=== PATIENT | male | born 1975 | race Caucasian/White ===

== ENCOUNTER 2018-04-08 14:20 | Emergency (ER) | payer OTHER ==
[~2018-04-08] VITALS: Ht 185.4 cm; Wt 107.5 kg
[2018-04-08 14:31] VITALS: BP 154/100
[2018-04-08 15:16] LABS: INFLUENZA A ANTIGEN None Detected (None Detect); INFLUENZA B ANTIGEN None Detected (None Detect)
[2018-04-08] MEDS ORDERED: CHERATUSSIN AC118 ML PO (15:42)
== END 2018-04-08 16:05 | disposition home or self-care (01) ==
LOC: M.ERS 14:20
PROVIDERS: Nurse Practitioner Family
DX: J06.9 Acute upper respiratory infection, unspecified (principal); Z88.0 Allergy status to penicillin

== ENCOUNTER 2018-09-26 04:21 | Emergency (ER) | payer OTHER ==
[~2018-09-26] VITALS: Ht 185.4 cm; Wt 116.6 kg
[~2018-09-26 04:21] MED LIST: CHERATUSSIN AC118 ML PO
[2018-09-26] MEDS ORDERED: VERAPAMIL E.R240 M1 PO (04:24)
[2018-09-26 04:50] LABS: ABSOLUTE BASOPHILS 0.1 thou/uL (0.0-0.2); ABSOLUTE EOSINOPHILS 0.4 thou/uL (0.0-0.7); ABSOLUTE LYMPHOCYTES 4.6 thou/uL (0.8-5.3); ABSOLUTE MONOCYTES 0.7 thou/uL (0.0-1.2); ABSOLUTE NEUTROPHILS 3.7 thou/uL (1.6-8.1); BASOPHILS 1.2 %; EOSINOPHILS 4.6 %; HEMATOCRIT 45.8 % (42.0-52.0); HEMOGLOBIN 16.2 gm/dL (14.0-18.0); LYMPHOCYTES 47.9 %; MCH 29.9 pg (26.0-34.0); MCHC 35.3 g/dL (28.0-37.0); MCV 84.6 fL (80.0-100.0); MONOCYTES 7.6 %; MPV 8.5 fl. (7.2-11.1); NUCLEATED RBCS 0 /100WBC; PLATELET COUNT* 315 thou/uL (150-400); POLYS 38.7 %; RBC 5.42 mil/uL (4.50-6.00); RDW-CV 13.3 % (10.5-14.5); WBC 9.6 thou/uL (4.0-11.0)
[2018-09-26 06:12] LABS: PROTIME 10.7 Seconds (9.20-11.50)
[2018-09-26 06:25] LABS: ANION GAP 14 mmol/L (7-16); CHLORIDE 100 mmol/L (98-107); CO2 26 mmol/L (21-32); POTASSIUM 3.6 mmol/L (3.5-5.1); SODIUM 140 mmol/L (136-145)
[2018-09-26 06:26] LABS: BUN 19 mg/dL (7-18); CREATININE 1.2 mg/dL (0.6-1.3)
[2018-09-26 06:27] LABS: GLUCOSE 116 mg/dL (70-99); SGOT 49 U/L (15-37); TOTAL BILIRUBIN 0.1 mg/dL (<0.1-1.0)
[2018-09-26 06:28] LABS: ALKALINE PHOSPHATASE 65 U/L (46-116); CALCIUM 9.7 mg/dL (8.5-10.1)
[2018-09-26 06:29] LABS: SGPT 103 U/L (30-65); TOTAL PROTEIN 10.2 g/dL (6.4-8.2)
[2018-09-26 06:30] LABS: ALBUMIN 4.4 g/dL (3.4-5.0)
[2018-09-26 06:31] LABS: TROPONIN-I LEVEL <0.06 ng/mL (<0.06)
[2018-09-26 07:09] VITALS: BP 130/89
--- NOTE | 2018-09-26 12:09 | EKG ---
[place] [address] ELECTROCARDIOGRAM REPORT Name: JORGE HOLT Room: [facility]#: [id number] Admission: 09/26/18 Attend Phys: Discharge: 09/26/18 Date of : 75 Report #: [id number] THIS REPORT FOR: //name// [facility] ED Test Date: 2018-09-26 Test Time: 04:22:31 Pat Name: JORGE HOLT Department: Room: Gender: M Manager Sales Training: ELLIS : 1975 Requested By: Juan Ramon Cook Order Number: [id number] MD: Maxim Steward Measurements Intervals [place] Rate: 100 P: 72 NH: 149 QRS: 6 QRSD: 97 T: 64 QT: 337 QTc: 435 Interpretive Statements Sinus tachycardia Abnormal R-wave progression, early transition Nonspecific T abnormalities, anterior leads No previous ECG available for comparison Electronically Signed On 09-26-2018 12:09:03 CDT by Maxim Steward [email or web address] <ELECTRONICALLY SIGNED> By: Maxim Steward MD, [facility] 09/26/18 1209 0422 0422 Maxim Steward MD, FACC /EPI
== END 2018-09-26 07:09 | disposition home or self-care (01) ==
LOC: M.ERS 04:21
PROVIDERS: Emergency Medicine Emergency Medical Services
DX: R00.2 Palpitations (principal); I10 Essential (primary) hypertension; Z87.891 Personal history of nicotine dependence; Z88.0 Allergy status to penicillin

== ENCOUNTER → 2021-02-25 | Outpatient (CLI) | payer OTHER ==
[~2021-02-25] MED LIST changes: +VERAPAMIL E.R240 M1 PO
== END ==
LOC: M.ULTRA 08:48
PROVIDERS: ATTEND Internal Medicine
DX: K76.0 Fatty (change of) liver, not elsewhere classified (principal); R16.0 Hepatomegaly, not elsewhere classified; R74.8 Abnormal levels of other serum enzymes